=== PATIENT | female | born 1965 | race African-American/Black ===

== ENCOUNTER 2020-11-11 07:46 | Emergency (ER) | payer OTHER, SELFPAY ==
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
[2020-11-11 07:42] VITALS: BP 200/120; PULSE 88; RESP 14; TEMP 37.4; O2SAT 99
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
[2020-11-11 08:40] LABS: Estimated CRCL calculation 89 ml/min; Estimated Glomerular Filt Rate > 60
[2020-11-11 09:50] VITALS: BP 159/98; RESP 16; O2SAT 98
[2020-11-11] MEDS: HYDROcodone/acetaminophen (*CRX) 5-325 MG TABLET 1 TAB PO (10:06)
[2020-11-11] MEDS: CYCLOBENZAPRINE HCL 10 MG TABLET PO (10:06)
[2020-11-11] MEDS: KETOROLAC 30 MG/ML VIAL (*BKC) IV PUSH (10:06)
[2020-11-11 10:12] VITALS: BP 139/70; PULSE 80; RESP 12; O2SAT 99
== END 2020-11-11 10:15 | disposition home or self-care (01) ==
PROVIDERS: Emergency Provider Emergency Medicine
DX: S16.1XXA Strain of muscle, fascia and tendon at neck level, initial encounter (principal); S30.1XXA Contusion of abdominal wall, initial encounter; S20.212A Contusion of left front wall of thorax, initial encounter; V49.40XA Driver injured in collision with unspecified motor vehicles in traffic accident, initial encounter
CPT/HCPCS: 70450; 71260; 72125; 74177; 96374; 99284; A9270; J1885; Q9967